=== PATIENT | male | born 1950 | race Caucasian/White ===

== ENCOUNTER → 2018-12-11 | Outpatient (CLI) | payer MEDICARE ==
[~2018-12-11] MED LIST: ASPI-1197 PO; EZET1TAB21 PO; LISI2.5T2 PO; METO25TA3 PO; MULT-603 PO; NITR0.3T SL; SERT50TA PO
== END | disposition home or self-care (01) ==
LOC: RAH 09:25
PROVIDERS: ATTEND Internal Medicine Cardiovascular Disease
DX: I71.4 Abdominal aortic aneurysm, without rupture (principal)
CPT/HCPCS: 76775

== ENCOUNTER → 2019-03-10 | Outpatient (CLI) | payer MEDICARE ==
[~2019-03-10] MED LIST changes: +IOHEXOL 350 MG/ML 100ML INFUS..BTL IV ONE
== END | disposition home or self-care (01) ==
LOC: RAH 07:54
PROVIDERS: ATTEND Internal Medicine Gastroenterology
DX: K76.0 Fatty (change of) liver, not elsewhere classified (principal); I70.0 Atherosclerosis of aorta; K57.30 Diverticulosis of large intestine without perforation or abscess without bleeding; N32.89 Other specified disorders of bladder
CPT/HCPCS: 74178; Q9967

== ENCOUNTER → 2019-06-07 | Outpatient (CLI) | payer MEDICARE ==
[~2019-06-07] MED LIST changes: -IOHEXOL 350 MG/ML 100ML INFUS..BTL IV ONE; +IOHEXOL-350 50ML VIAL IV ONE
== END | disposition home or self-care (01) ==
LOC: RAH 07:39
PROVIDERS: ATTEND Family Medicine
DX: J44.9 Chronic obstructive pulmonary disease, unspecified (principal); M47.815 Spondylosis without myelopathy or radiculopathy, thoracolumbar region; I25.10 Atherosclerotic heart disease of native coronary artery without angina pectoris
CPT/HCPCS: 71270; Q9967

== ENCOUNTER 2019-07-29 17:43 | Observation (INO) | payer MEDICARE ==
[~2019-07-29] VITALS: Ht 182.9 cm; Wt 89.8 kg
[~2019-07-29 17:43] MED LIST changes: -IOHEXOL-350 50ML VIAL IV ONE
[2019-07-29] MEDS ORDERED: ASPIRIN 325 MG TABLET ONE (17:54)
[2019-07-29 17:58] LABS: BASOPHILS % (AUTO) 0.9 % (0.0-5.0); HEMATOCRIT 43.8 % (42-54); LYMPHOCYTES % (AUTO) 22.7 % (21.0-51.0); MEAN CORPUSCULAR HEMOGLOBIN 37.1 pg (27.0-33.0); MEAN CORPUSCULAR HGB CONC 34.8 g/dL (32.0-36.0); MEAN CORPUSCULAR VOLUME 106.6 fL (79-99); MONOCYTES % (AUTO) 9.7 % (3.0-13.0); NEUTROPHILS % (AUTO) 60.7 % (40.0-77.0); PLATELET COUNT (AUTO) 149 K/uL (130-400); RED BLOOD CELL COUNT(AUTO) 4.11 MIL/uL (4.50-6.20); RED CELL DISTRIBUTION WIDTH 12.8 % (11.0-15.5); WHITE BLOOD COUNT (AUTO) 8.8 K/uL (4.8-10.8)
[2019-07-29 18:10] LABS: POTASSIUM 4.6 mmol/L (3.5-5.1)
[2019-07-29 18:14] LABS: INR 0.98 (0.85-1.15); PARTIAL THROMBOPLASTIN TIME 26.4 SEC (26.3-35.5); PROTHROMBIN TIME 10.3 SEC (9.6-11.6)
[2019-07-29 18:15] LABS: ALBUMIN 3.9 g/dL (3.5-5.0); BILIRUBIN,TOTAL 0.5 mg/dL (0.2-1.0); TOTAL PROTEIN, SERUM 7.1 g/dL (6.0-8.3)
[2019-07-29] MEDS ORDERED: NITROGLYCERIN 1GM/1 INCH PACKET TD ONE (18:23)
[2019-07-29] MEDS ORDERED: IPRATROPIUM/ALBUTEROL SULFATE 3 ML SOLUTION IH ONE (18:30)
[2019-07-29] MEDS ORDERED: ONDANSETRON HCL 4 MG/2 ML VIAL IVP PRN (21:15)
[2019-07-29] MEDS ORDERED: NITROGLYCERIN 0.4 MG SL TAB SL PRN (21:15)
[2019-07-29] MEDS: NITROGLYCERIN 1GM/1 INCH PACKET TD SCH (22:00)
[2019-07-29 23:00] VITALS: BP 122/56
[2019-07-30] VITALS: BP 120/53
[2019-07-30] MEDS ORDERED: NITROGLYCERIN 0.3 MG SL SCH
[2019-07-30] MEDS ORDERED: PANT40TA25 PO (00:01)
[2019-07-30] MEDS ORDERED: LOSA25TA41 PO (00:01)
[2019-07-30] MEDS ORDERED: EZET1TAB21 PO (00:03)
[2019-07-30] MEDS ORDERED: ACETAMINOPHEN 325 MG TAB PO PRN (00:45)
[2019-07-30 01:23] LABS: CREATINE KINASE, TOTAL 72 U/L (21-232); MYOGLOBIN 68 ng/mL (10-92); TROPONIN I < 0.04 ng/mL (0.00-0.06)
[2019-07-30 04:00] VITALS: BP 131/71
[2019-07-30] MEDS: NITROGLYCERIN 1GM/1 INCH PACKET TD SCH (06:06)
[2019-07-30 06:09] LABS: BASOPHILS % (AUTO) 1.1 % (0.0-5.0); EOSINOPHILS % (AUTO) 8.4 % (0.0-8.0); HEMATOCRIT 41.4 % (42-54); LYMPHOCYTES % (AUTO) 17.7 % (21.0-51.0); MEAN CORPUSCULAR HEMOGLOBIN 37.2 pg (27.0-33.0); MEAN CORPUSCULAR HGB CONC 34.2 g/dL (32.0-36.0); MEAN CORPUSCULAR VOLUME 108.9 fL (79-99); MONOCYTES % (AUTO) 7.8 % (3.0-13.0); PLATELET COUNT (AUTO) 127 K/uL (130-400); RED CELL DISTRIBUTION WIDTH 12.5 % (11.0-15.5); WHITE BLOOD COUNT (AUTO) 7.7 K/uL (4.8-10.8)
[2019-07-30 06:32] LABS: CARBON DIOXIDE 29 mmol/L (21-32); CHLORIDE 108 mmol/L (101-111); CREATINE KINASE, TOTAL 91 U/L (21-232); CREATININE 0.8 mg/dL (0.5-1.5); GLOMERULAR FILTR. RATE CALC 102 mL/min (>60); GLUCOSE,RANDOM 106 mg/dL (70-105); MYOGLOBIN 65 ng/mL (10-92); PHOSPHORUS 2.7 mg/dL (2.5-4.9); POTASSIUM 4.6 mmol/L (3.5-5.1); SODIUM SERUM 142 mmol/L (136-145); TROPONIN I < 0.04 ng/mL (0.00-0.06); UREA NITROGEN, BLOOD 9 mg/dL (7-18)
[2019-07-30 07:30] VITALS: BP 125/53
[2019-07-30] MEDS ORDERED: ASPIRIN 81MG TAB.CHEW PO SCH ×2 (09:00)
[2019-07-30] MEDS ORDERED: MULTIVITAMIN TABLET PO SCH (09:00)
[2019-07-30] MEDS ORDERED: SIMVASTATIN PO SCH ×2 (09:00→21:00)
[2019-07-30] MEDS ORDERED: METOPROLOL SUCCINATE 25 MG PO SCH (09:00)
[2019-07-30] MEDS ORDERED: NICOTINE 14 MG/ 24 HR PATCH TD SCH (09:00)
[2019-07-30] MEDS ORDERED: PANTOPRAZOLE SODIUM 40 MG TABLET.DR PO SCH (09:00)
[2019-07-30] MEDS ORDERED: [UNRECOGNIZED DRUG - OTHER] PO SCH (09:00)
[2019-07-30] MEDS ORDERED: SIMVASTATIN 20 MG TABLET PO SCH ×2 (09:00→21:00)
[2019-07-30] MEDS ORDERED: EZETIMIBE 10 MG TAB PO SCH ×2 (09:00→21:00)
[2019-07-30] MEDS ORDERED: SERTRALINE HCL 50 MG TABLET PO SCH (09:00)
[2019-07-30] MEDS ORDERED: EZETIMIBE PO SCH ×2 (09:00→21:00)
[2019-07-30 11:00] VITALS: BP 130/56
[2019-07-30] MEDS ORDERED: REGADENOSON 0.4 MG/5 ML PF SYG IVP SCH (12:15)
--- NOTE | 2019-07-30 14:38 | NUR ---
Pt update Pt off the floor for Lexiscan, pt AOX3, pt condition stable, Nursing will continue to monitor.
--- NOTE | 2019-07-30 18:37 | NUR ---
PT UPDATE As per cardiology, pt is okay for d/c, [facility] on-call paged for d/c orders, pending call back
[2019-07-30 19:00] VITALS: BP 137/61
--- NOTE | 2019-07-30 19:26 | NUR ---
PT D/C DISPOSITION PER [facility] [employer] [facility], HE IS, NOT COMFORTABLE GIVING A D/C ORDER.
--- NOTE | 2019-07-30 20:16 | NUR ---
dc status discharged home stable condition per v/s ,no c/o pain or discomfort , piv dcd aseptically ,cath completely out , good hemostasis , transported via wc accompanied to lobby by bernardo mendoza Addendum: 07/30/19 at 2017 by JUDI DASH RN RN Amended: Links added.
[2019-07-30] MEDS ORDERED: [UNRECOGNIZED DRUG - OTHER] PO SCH (21:00)
[2019-07-30] MEDS ORDERED: LOSARTAN 50 MG TABLET PO SCH (21:00)
== END 2019-07-30 20:15 | disposition home or self-care (01) ==
LOC: EDH 17:43 → EDHIP 19:20 → 4DH 21:36 → 3AH 22:32
PROVIDERS: ADMIT Internal Medicine; ATTEND Internal Medicine
DX: R07.89 Other chest pain (principal); I25.2 Old myocardial infarction; I25.10 Atherosclerotic heart disease of native coronary artery without angina pectoris; I10 Essential (primary) hypertension; E78.5 Hyperlipidemia, unspecified; K21.9 Gastro-esophageal reflux disease without esophagitis; D69.6 Thrombocytopenia, unspecified; Z95.5 Presence of coronary angioplasty implant and graft; Z79.82 Long term (current) use of aspirin; Z79.899 Other long term (current) drug therapy
CPT/HCPCS: 36415 ×2; 71045; 78452; 80048; 80053; 82550 ×3; 83735; 83874 ×2; 84100; 84484 ×4; 85025 ×2; 85610; 85730; 93005 ×3; 93017; 94640; 99284; A9500 ×2; G0378 ×24; J2785; 96374

== ENCOUNTER → 2019-08-26 | Outpatient (CLI) | payer MEDICARE ==
[~2019-08-26] MED LIST changes: -LISI2.5T2 PO; +LOSA25TA41 PO; +PANT40TA25 PO
== END | disposition home or self-care (01) ==
LOC: SHCH 11:06
PROVIDERS: ATTEND Internal Medicine Cardiovascular Disease
DX: I65.23 Occlusion and stenosis of bilateral carotid arteries (principal)
CPT/HCPCS: 93880

== ENCOUNTER → 2024-08-06 | Outpatient (CLI) | payer MEDICARE ==
[~2024-08-06] MED LIST changes: +EZET-82 PO; -EZET1TAB21 PO; -PANT40TA25 PO; +PANT40TA54 PO
== END | disposition home or self-care (01) ==
LOC: SHCH 09:45
PROVIDERS: ATTEND Internal Medicine Cardiovascular Disease
DX: I35.0 Nonrheumatic aortic (valve) stenosis (principal)
CPT/HCPCS: 93306